=== PATIENT | male | born 1935 | race Caucasian/White ===

== ENCOUNTER 2017-09-29 14:45 | Emergency (ER) | payer OTHER ==
[~2017-09-29] VITALS: Ht 162.6 cm; Wt 59.0 kg
[~2017-09-29 14:45] MED LIST: ACIDOPHILUS1 EAC3; CENTRUM SILVER1 EAC1; CENTRUM SILVER1 EAC4 PO; COUMADIN 3 MG TA3 MG PO; COUMADIN 4 MG TA4 M1 PO; COUMADIN PO; DIABETA PO; DOXAZOSIN MESYLA1 MG PO; FISH OIL 1,0001 EAC5 PO; FLAGYL500 MG; FLEXERIL PO; FLOMAX PO; FLOMAX0.4 MG PO; GLIMEPIRIDE2 MG PO; HYDROCODONE-AP1 EAC6 PO; IBUPROFEN 400400 M2 PO; LIDODERM 5%1 PATC1 TOP; LOTENSIN PO; LOTENSIN20 MG PO; LOTENSIN5 MG; LOVENOX40 MG/0.4 SUBQ; NEXIUM40 MG PO; NORCO 5-325 TA1 EACH PO; OXYCODONE HCL 55 MG PO; PHENERGAN25 M2 RC; SIMVASTATIN40 MG; SIMVASTATIN80 MG PO; TRAMADOL 50 MG50 MG PO; TYLENOL325 MG PO; VITAMINC500 PO; XALATAN2.5 ML OP; ZOCOR80 MG PO; ZOFRAN 4 MG ORAL4 M1 DIS; ZOLOFT50 MG PO
[2017-09-29 15:37] LABS: ABSOLUTE LYMPHOCYTES 1.5 thou/uL (0.8-5.3); ABSOLUTE MONOCYTES 0.5 thou/uL (0.0-1.2); ABSOLUTE NEUTROPHILS 3.5 thou/uL (1.6-8.1); BASOPHILS 0.7 %; EOSINOPHILS 0.9 %; LYMPHOCYTES 26.7 %; MCH 29.1 pg (26.0-34.0); MCHC 33.4 g/dL (28.0-37.0); MCV 87.2 fL (80.0-100.0); MONOCYTES 9.5 %; NUCLEATED RBCS 0 /100WBC; PLATELET COUNT* 182 thou/uL (150-400); POLYS 62.2 %; RBC 4.47 mil/uL (4.50-6.00); RDW-CV 14.3 % (10.5-14.5); WBC 5.6 thou/uL (4.0-11.0)
[2017-09-29 15:44] LABS: INR 2.3; PROTIME 22.1 Seconds (9.20-11.50)
[2017-09-29 15:46] LABS: ANION GAP 6 mmol/L (7-16); BUN 28 mg/dL (7-18); CALCIUM 8.7 mg/dL (8.5-10.1); CHLORIDE 107 mmol/L (98-107); CO2 29 mmol/L (21-32); CREATININE 1.7 mg/dL (0.6-1.3); GLUCOSE 145 mg/dL (70-99); POTASSIUM 4.6 mmol/L (3.5-5.1); SODIUM 142 mmol/L (136-145)
[2017-09-29 15:57] LABS: ALBUMIN 3.4 g/dL (3.4-5.0); ALKALINE PHOSPHATASE 54 U/L (46-116); LIPASE 107 U/L (73-393); NT-PRO BRAIN NAT PEPTIDE 136 pg/mL (<300); SGOT 19 U/L (15-37); SGPT 28 U/L (30-65); TOTAL BILIRUBIN 0.2 mg/dL (<0.1-1.0); TOTAL PROTEIN 6.5 g/dL (6.4-8.2); TROPONIN-I LEVEL <0.06 ng/mL (<0.06)
[2017-09-29] MEDS ORDERED: HYDROCHLOROTH12.5 M1 PO (16:04)
[2017-09-29] MEDS ORDERED: AMOXICILLIN-CL1 EACH PO (16:04)
[2017-09-29] MEDS ORDERED: CALCIUM 600 +1 EAC1 PO (16:05)
[2017-09-29] MEDS ORDERED: CEFDINIR300 MG PO (16:05)
[2017-09-29] MEDS ORDERED: CENTRUM SILVER1 EACH PO (16:06)
[2017-09-29] MEDS ORDERED: FISH OIL 1,001000 M2 PO (16:07)
[2017-09-29] MEDS ORDERED: FLOVENT HFA 4444 MCG INH (16:07)
[2017-09-29] MEDS ORDERED: NEURONTIN600 MG PO (16:08)
[2017-09-29] MEDS ORDERED: OMEPRAZOLE 20 M20 MG PO (16:09)
[2017-09-29] MEDS ORDERED: METFORMIN HCL500 MG PO (16:09)
[2017-09-29] MEDS ORDERED: PREVNAR 13 SYR0.5 ML IM (16:10)
[2017-09-29] MEDS ORDERED: PROCTOZONE-HC30 GM TOP (16:11)
[2017-09-29] MEDS ORDERED: VITAMIN B-12500 MCG PO (16:11)
[2017-09-29 16:45] LABS: URINE BILIRUBIN NEGATIVE (Negative); URINE BLOOD NEGATIVE (Negative); URINE CLARITY CLEAR; URINE COLOR YELLOW; URINE GLUCOSE-RANDOM NEGATIVE (Negative); URINE KETONES TRACE (Negative); URINE LEUKOCYTES-REFLEX NEGATIVE (Negative); URINE NITRITE-REFLEX NEGATIVE (Negative); URINE PROTEIN NEGATIVE (Negative); URINE SPECIFIC GRAVITY 1.015 (1.005-1.030); URINE UROBILINOGEN 0.2 E.U./dl (0.2-1.0)
[2017-09-29 17:23] VITALS: BP 104/66
--- NOTE | 2017-09-30 12:44 | EKG ---
[place] [address] ELECTROCARDIOGRAM REPORT Name: MONTSERRAT THOMPSON [id number] Admission: 09/29/17 Attend Phys: Discharge: 09/29/17 Date of : 31 Report #: [id number] THIS REPORT FOR: //name// [facility] ED Test Date: 2017-09-29 Test Time: 15:28:39 Pat Name: MONTSERRAT THOMPSON Department: Room: Gender: M Clinical Program Coordinator: Alva MONTAGUE : 1935 Requested By: Juan Quigley Order Number: [id number] MD: Luis Davey Measurements Intervals [place] Rate: 85 P: 25 [place]: 185 QRS: -28 QRSD: 74 T: 52 QT: 360 QTc: 428 Interpretive Statements Sinus rhythm Abnormal R-wave progression, early transition Inferior infarct, old Baseline wander in lead(s) V2 Compared to ECG 04/10/2015 09:23:42 No significant changes Electronically Signed On 09-30-2017 12:44:20 INFECTION CONTROL COORDINATOR by Luis Davey [email or web address] <ELECTRONICALLY SIGNED> By: Luis Davey MD, [facility] 09/30/17 1244 1528 1528 Luis Davey MD, [facility] /EPI
== END 2017-09-29 17:25 | disposition home or self-care (01) ==
LOC: M.ERS 14:45
PROVIDERS: Emergency Medicine
DX: R53.1 Weakness (principal); K21.9 Gastro-esophageal reflux disease without esophagitis; I10 Essential (primary) hypertension; E78.5 Hyperlipidemia, unspecified; E11.9 Type 2 diabetes mellitus without complications; Z85.46 Personal history of malignant neoplasm of prostate